=== PATIENT | female | born 1985 | race Caucasian/White ===

== ENCOUNTER 2017-06-29 21:52 | Emergency (ER) | payer MEDICAID, OTHER ==
[~2017-06-29] VITALS: Ht 157.5 cm; Wt 98.9 kg
[2017-06-29 21:55] VITALS: BP_SYST 145
--- NOTE | 2017-06-29 22:02 | NUR ---
Patient to ER bed 04 to gown for evaluation. Side rails up.
--- NOTE | 2017-06-29 22:09 | NUR ---
Pt c/o burning and frequent urination x2-3 days and pain to pelvic area which started today. Denies SOB, fever/chills. Respirations even and unlabored. No acute distress noted. Will continue to monitor
--- NOTE | 2017-06-29 22:14 | NUR ---
ER Dr. Gramajo at bedside examining patient.
--- NOTE | 2017-06-29 22:26 | NUR ---
Patient given written and verbal discharge instructions and verbalizes understanding. ER MD discussed with patient the results and treatment provided. Patient in stable condition. ID arm band removed. Rx of Pyridium and Macrobid given. Patient educated on pain management and to follow up with PMD. Opportunity for questions provided and answered.
[2017-06-29 22:27] VITALS: BP_SYST 142
[2017-06-29 22:32] LABS: BILIRUBIN,URINE NEGATIVE (NEGATIVE); CLARITY/URINE CLEAR (CLEAR); COLOR,URINE YELLOW (YELLOW); GLUCOSE,URINE NEGATIVE (NEGATIVE); KETONES,URINE NEGATIVE (NEGATIVE); LEUKOCYTE ESTERASE ,URINE NEGATIVE (NEGATIVE); NITRITE, URINE NEGATIVE (NEGATIVE); PROTEIN URINE NEGATIVE (NEGATIVE); UROBILINOGEN,URINE 0.2 (0.2-1.0)
[2017-06-29 22:33] LABS: BLOOD, URINE TRACE (NEGATIVE)
[2017-06-29 22:37] LABS: BACTERIA,URINE FEW /HPF (None Seen); RBC,URINE 0-3 /HPF (0-3); WBC,URINE 0-3 /HPF (0-3)
== END 2017-06-29 22:27 | disposition home or self-care (01) ==
LOC: SED 21:52
DX: N39.0 Urinary tract infection, site not specified (principal); I10 Essential (primary) hypertension; Z90.49 Acquired absence of other specified parts of digestive tract
CPT/HCPCS: 81000-TC; 99283

== ENCOUNTER 2017-07-01 11:52 | Emergency (ER) | payer MEDICAID ==
[~2017-07-01] VITALS: Ht 157.5 cm; Wt 98.9 kg
[2017-07-01 12:00] VITALS: BP_SYST 127
--- NOTE | 2017-07-01 12:04 | NUR ---
Ambulatory to bed 8
--- NOTE | 2017-07-01 12:20 | NUR ---
Pt ambulated to the ER A&Ox4 c/o vomiting x4 since last night. Pt states she has a headache and abdominal pain 7/10 now. Pt has hx of bladder infection two days ago. Pt reports having a fever and chills last night. Temperature is 98.7 now. Pt denies any n/v now. No other injuries/complaints per pt or noted.
--- NOTE | 2017-07-01 12:28 | NUR ---
ER Dr. Reyes at bedside examining patient.
[2017-07-01] MEDS ORDERED: NACL 0.9% 1,000 ML IV ONE (13:18)
--- NOTE | 2017-07-01 13:28 | NUR ---
Medication administered. Tolerated well. No adverse reactions noted.
[2017-07-01] MEDS ORDERED: ONDANSETRON HCL 4 MG/2 ML VIAL IVP ONE (13:30)
[2017-07-01 13:32] LABS: CALCIUM 8.8 mg/dL (8.4-11.0); CREATININE 0.7 mg/dL (0.55-1.30); POTASSIUM 3.6 mmol/L (3.5-5.1)
[2017-07-01 13:36] LABS: ALBUMIN 3.4 g/dL (3.4-4.8); TOTAL BILIRUBIN 0.3 mg/dL (0.0-1.0)
[2017-07-01 13:37] LABS: BILIRUBIN,URINE NEGATIVE (NEGATIVE); BLOOD, URINE 3+ (NEGATIVE); CLARITY/URINE SL CLOUDY (CLEAR); COLOR,URINE YELLOW (YELLOW); GLUCOSE,URINE NEGATIVE (NEGATIVE); KETONES,URINE NEGATIVE (NEGATIVE); LEUKOCYTE ESTERASE ,URINE NEGATIVE (NEGATIVE); NITRITE, URINE NEGATIVE (NEGATIVE); PROTEIN URINE NEGATIVE (NEGATIVE)
[2017-07-01 13:37] LABS: BASOPHILS % (AUTO) 0.3 % (0.0-2.0); EOSINOPHILS # (AUTO) 0.1 K/uL (0.0-0.4); EOSINOPHILS % (AUTO) 1.1 % (0.0-4.0); HEMATOCRIT 34.9 % (36-48); HEMOGLOBIN 11.7 g/dL (12.0-16.0); LYMPHOCYTES # (AUTO) 1.8 K/uL (1.0-5.5); LYMPHOCYTES % (AUTO) 23.9 % (20.5-51.5); MEAN CORPUSCULAR HEMOGLOBIN 29 pg (27-31); MEAN CORPUSCULAR HGB CONC 34 % (32-36); MEAN CORPUSCULAR VOLUME 87 fL (79.0-98.0); MONOCYTES # (AUTO) 0.4 K/uL (0.0-1.0); MONOCYTES % (AUTO) 4.7 % (1.7-9.3); NEUTROPHILS # (AUTO) 5.3 K/uL (1.8-7.7); PLATELET COUNT (AUTO) 200 K/uL (130-430); RED BLOOD CELL COUNT(AUTO) 4.03 MIL/uL (4.2-6.2); RED CELL DISTRIBUTION WIDTH 13.5 % (9.0-15.0); WHITE BLOOD COUNT (AUTO) 7.6 K/uL (4.8-10.8)
[2017-07-01 13:49] LABS: BACTERIA,URINE FEW /HPF (None Seen); WBC,URINE 0-3 /HPF (0-3)
[2017-07-01 13:50] LABS: MUCUS,URINE 1+ /LPF (None Seen)
--- NOTE | 2017-07-01 14:00 | NUR ---
Radiology at bedside.
[2017-07-01 15:32] VITALS: BP_SYST 133
--- NOTE | 2017-07-01 15:32 | NUR ---
Patient given written and verbal discharge instructions and verbalizes understanding. ER MD BREWER discussed with patient the results and treatment provided. Patient in stable condition. ID arm band removed. IV catheter removed intact and dressing applied, no active bleeding.Rx of ZOFRAN given. Patient educated on pain management and to follow up with PMD. Pain Scale 0. Opportunity for questions provided and answered. Addendum: 07/01/17 at 1533 by [email or web address] PT DISCHARGED AT 1512
== END 2017-07-01 15:32 | disposition home or self-care (01) ==
LOC: SED 11:52
DX: K52.9 Noninfective gastroenteritis and colitis, unspecified (principal); Z90.49 Acquired absence of other specified parts of digestive tract
CPT/HCPCS: 36415; 74000; 80053; 81000; 81025; 83690; 85025; 96361; 96374; 99285; J2405; J7030

== ENCOUNTER 2017-07-15 13:21 | Emergency (ER) | payer MEDICAID ==
[~2017-07-15] VITALS: Ht 160 cm; Wt 98.9 kg
[2017-07-15 13:31] VITALS: BP_SYST 136
[2017-07-15] MEDS ORDERED: ACETAMINOPHEN 500 MG TABLET PO ONE (14:30)
[2017-07-15] MEDS ORDERED: ONDANSETRON 4 MG ODT TAB PO ONE (14:45)
[2017-07-15 15:00] LABS: BASOPHILS % (AUTO) 0.2 % (0.0-2.0); EOSINOPHILS % (AUTO) 0.3 % (0.0-4.0); HEMATOCRIT 37.8 % (36-48); HEMOGLOBIN 12.6 g/dL (12.0-16.0); LYMPHOCYTES # (AUTO) 1.9 K/uL (1.0-5.5); LYMPHOCYTES % (AUTO) 17.1 % (20.5-51.5); MEAN CORPUSCULAR HEMOGLOBIN 29 pg (27-31); MEAN CORPUSCULAR HGB CONC 33 % (32-36); MEAN CORPUSCULAR VOLUME 86 fL (79.0-98.0); MONOCYTES # (AUTO) 0.3 K/uL (0.0-1.0); MONOCYTES % (AUTO) 2.8 % (1.7-9.3); NEUTROPHILS % (AUTO) 79.6 % (40.0-70.0); PLATELET COUNT (AUTO) 265 K/uL (130-430); RED BLOOD CELL COUNT(AUTO) 4.41 MIL/uL (4.2-6.2); RED CELL DISTRIBUTION WIDTH 13.4 % (9.0-15.0); WHITE BLOOD COUNT (AUTO) 11.2 K/uL (4.8-10.8)
[2017-07-15 15:14] LABS: CALCIUM 8.8 mg/dL (8.4-11.0); CREATININE 0.7 mg/dL (0.55-1.30); POTASSIUM 3.5 mmol/L (3.5-5.1)
[2017-07-15 15:28] LABS: ALBUMIN 3.6 g/dL (3.4-4.8); TOTAL BILIRUBIN 0.3 mg/dL (0.0-1.0)
[2017-07-15 16:30] VITALS: BP_SYST 110
== END 2017-07-15 16:34 | disposition home or self-care (01) ==
LOC: SED 13:21
DX: A08.4 Viral intestinal infection, unspecified (principal); K59.00 Constipation, unspecified; K21.9 Gastro-esophageal reflux disease without esophagitis; Z90.49 Acquired absence of other specified parts of digestive tract
CPT/HCPCS: 36415; 74020; 80053; 81025; 83690; 84702; 85025; 99285; Q0162

== ENCOUNTER 2017-09-01 17:34 | Emergency (ER) | payer MEDICAID ==
[~2017-09-01] VITALS: Ht 157.5 cm; Wt 97.5 kg
[2017-09-01 17:40] VITALS: BP_SYST 144
[2017-09-01] MEDS ORDERED: KETOROLAC TROMETHAMINE 30 MG VIAL IVP ONE (18:15)
[2017-09-01] MEDS ORDERED: PROCHLORPERAZINE EDISYLATE 10 MG/2 ML VIAL IVP ONE (18:15)
[2017-09-01] MEDS ORDERED: NACL 0.9% 1,000 ML IV ONE (18:15)
[2017-09-01 18:51] LABS: BASOPHILS # (AUTO) 0.1 K/uL (0.0-0.2); BASOPHILS % (AUTO) 0.5 % (0.0-2.0); EOSINOPHILS % (AUTO) 0.3 % (0.0-4.0); HEMATOCRIT 37.7 % (36-48); HEMOGLOBIN 12.5 g/dL (12.0-16.0); LYMPHOCYTES # (AUTO) 1.3 K/uL (1.0-5.5); LYMPHOCYTES % (AUTO) 10.6 % (20.5-51.5); MEAN CORPUSCULAR HEMOGLOBIN 28 pg (27-31); MEAN CORPUSCULAR HGB CONC 33 % (32-36); MEAN CORPUSCULAR VOLUME 84 fL (79.0-98.0); MONOCYTES # (AUTO) 0.4 K/uL (0.0-1.0); MONOCYTES % (AUTO) 3.3 % (1.7-9.3); NEUTROPHILS # (AUTO) 10.8 K/uL (1.8-7.7); NEUTROPHILS % (AUTO) 85.3 % (40.0-70.0); PLATELET COUNT (AUTO) 287 K/uL (130-430); RED BLOOD CELL COUNT(AUTO) 4.48 MIL/uL (4.2-6.2); RED CELL DISTRIBUTION WIDTH 13.1 % (9.0-15.0); WHITE BLOOD COUNT (AUTO) 12.6 K/uL (4.8-10.8)
[2017-09-01 18:59] LABS: BILIRUBIN,URINE NEGATIVE (NEGATIVE); BLOOD, URINE NEGATIVE (NEGATIVE); COLOR,URINE YELLOW (YELLOW); GLUCOSE,URINE NEGATIVE (NEGATIVE); KETONES,URINE NEGATIVE (NEGATIVE); LEUKOCYTE ESTERASE ,URINE NEGATIVE (NEGATIVE); NITRITE, URINE NEGATIVE (NEGATIVE); PH,URINE 7.5 (5.0-8.0); PROTEIN URINE NEGATIVE (NEGATIVE); UROBILINOGEN,URINE 0.2 (0.2-1.0)
[2017-09-01 19:00] LABS: CLARITY/URINE HAZY (CLEAR)
[2017-09-01 19:03] LABS: CALCIUM 9.6 mg/dL (8.4-11.0); CREATININE 0.68 mg/dL (0.55-1.30); POTASSIUM 4.1 mmol/L (3.5-5.1)
[2017-09-01 19:07] LABS: ALBUMIN 3.8 g/dL (3.4-4.8); TOTAL BILIRUBIN 0.3 mg/dL (0.0-1.0)
[2017-09-01 20:30] VITALS: BP_SYST 138
== END 2017-09-01 20:30 | disposition home or self-care (01) ==
LOC: SED 17:34
DX: D72.829 Elevated white blood cell count, unspecified (principal); R51 Headache; R10.32 Left lower quadrant pain; R03.0 Elevated blood-pressure reading, without diagnosis of hypertension; K21.9 Gastro-esophageal reflux disease without esophagitis; Z90.49 Acquired absence of other specified parts of digestive tract
CPT/HCPCS: 36415; 74176; 80053; 81003; 83690; 84703; 85025; 96361; 96374; 96375; 99285; J0780; J1885; J7030

== ENCOUNTER 2019-09-17 22:57 | Emergency (ER) | payer MEDICAID ==
[~2019-09-17] VITALS: Ht 157.5 cm; Wt 103.0 kg
[2019-09-17 23:00] VITALS: BP_SYST 174
--- NOTE | 2019-09-17 23:52 | NUR ---
Patient to ER bed 7 to gown for evaluation. Side rails up. Report given to RAMANDEEP TAVERAS.
--- NOTE | 2019-09-18 | NUR ---
ER at bedside examining patient.
--- NOTE | 2019-09-18 | NUR ---
Pt brought in by self. Pt awake, alert, oriented x4, ambulatory. Pt states nausea and vomiting started yesterday. Pt states she is unable to hold down fluids and food. Pt states accompanying abdominal pain. Pt denies chest pain, diarrhea, shortness of breath. Pt denies any other medical complaint at this time. Pt resting in ed bed, no acute distress. VSS
[2019-09-18] MEDS ORDERED: LIDOCAINE VISCOUS 2%, 15 ML UDC MM ONE (00:15)
[2019-09-18] MEDS ORDERED: BELLADONNA ALKALOIDS/PHENOBARB 5 ML UDC PO ONE (00:15)
[2019-09-18] MEDS ORDERED: MAG-AL HYDROX/SIMETH 30 ML UDC PO ONE (00:15)
--- NOTE | 2019-09-18 00:45 | NUR ---
Pt resting in ED bed, no acute distress noted.
[2019-09-18 01:30] VITALS: BP_SYST 166
--- NOTE | 2019-09-18 01:30 | NUR ---
Patient given written and verbal discharge instructions and verbalizes understanding. ER MD discussed with patient the results and treatment provided. Patient in stable condition. ID arm band removed.No IV Rx of Pepcid given. Patient educated on pain management and to follow up with PMD. Pain Scale 0/10. Opportunity for questions provided and answered. Medication side effect fact sheet provided.
== END 2019-09-18 01:30 | disposition home or self-care (01) ==
LOC: SED 22:57
DX: K29.70 Gastritis, unspecified, without bleeding (principal); K21.9 Gastro-esophageal reflux disease without esophagitis
CPT/HCPCS: 99284; J2001

== ENCOUNTER 2020-05-23 17:29 | Emergency (ER) | payer MEDICAID ==
[~2020-05-23] VITALS: Ht 157.5 cm; Wt 102.1 kg
[2020-05-23 17:47] VITALS: BP_SYST 141
[2020-05-23] MEDS ORDERED: MAG HYDROX/AL HYDROX/SIMETH 30 ML, DICYCLOMINE HCL 20 MG, LIDOCAINE VISCOUS 2% 15ML (PO... PO ONE ×3 (19:15)
[2020-05-23] MEDS ORDERED: HYDROcodone/ACETAMIN 5-325 MG TAB (NORCO/ VICODIN) PO ONE (19:15)
[2020-05-23] MEDS ORDERED: PROCHLORPERAZINE EDISYLATE 10 MG/2 ML VIAL IM ONE (20:15)
[2020-05-23] MEDS ORDERED: KETOROLAC TROMETHAMINE 30 MG VIAL IM ONE (20:15)
[2020-05-23] MEDS ORDERED: DIPHENHYDRAMINE INJ 50 MG/ML VIAL IM ONE (20:15)
[2020-05-23] MEDS ORDERED: methylPREDNISolone SOD SUCC/PF 62.5 MG/ML VIAL IM ONE (21:15)
[2020-05-23] MEDS ORDERED: cloNIDine HCL 0.1 MG TABLET PO ONE (21:30)
[2020-05-23 22:12] VITALS: BP_SYST 135
== END 2020-05-23 22:12 | disposition home or self-care (01) ==
LOC: SED 17:29
DX: K29.70 Gastritis, unspecified, without bleeding (principal); R51.9 Headache, unspecified
CPT/HCPCS: 70450; 81025; 96372; 99284; J0780; J1200; J2001; J2930

== ENCOUNTER 2021-06-10 20:04 | Emergency (ER) | payer MEDICAID ==
[~2021-06-10] VITALS: Ht 154.9 cm; Wt 99.8 kg
[2021-06-10 20:35] VITALS: BP_SYST 160
[2021-06-10 21:43] LABS: BILIRUBIN,URINE NEGATIVE (NEGATIVE); BLOOD, URINE 3+ (NEGATIVE); CLARITY/URINE CLOUDY (CLEAR); COLOR,URINE YELLOW (YELLOW); GLUCOSE,URINE NEGATIVE (NEGATIVE); KETONES,URINE TRACE (NEGATIVE); LEUKOCYTE ESTERASE ,URINE NEGATIVE (NEGATIVE); NITRITE, URINE NEGATIVE (NEGATIVE); PROTEIN URINE NEGATIVE (NEGATIVE); UROBILINOGEN,URINE 0.2 (0.2-1.0)
[2021-06-10] MEDS ORDERED: MAG HYDROX/AL HYDROX/SIMETH 30 ML, DICYCLOMINE HCL 20 MG, LIDOCAINE VISCOUS 2% 15ML (PO... PO ONE ×3 (22:45)
--- NOTE | 2021-06-10 22:51 | NUR ---
Patient ambulatory to bed 4 for evaluation
--- NOTE | 2021-06-10 22:51 | NUR ---
DR. PALACIO AT BEDSIDE FOR EVALUATION.
--- NOTE | 2021-06-10 23:15 | NUR ---
PATIENT AAOX4 AND AMBULATORY FROM HOME C/O ON/OFF VOMITING X 1 WEEK WITH A BURNING SENSATION IN HER THROAT. +HEADACHE AND URINARY FREQUENCY AND URGENCY X 2 WEEKS. HISTORY OF GASTRITIS AND GALLSTONES. VSS. CURRENTLY STATING 4/10 ON THE PAIN SCALE. PT STATED SHE USUALLY COMES AND GETS A GI COCKTAIL AND IT WORKS FOR THE PAIN.
[2021-06-10 23:22] LABS: BACTERIA,URINE FEW /HPF (None Seen); MUCUS,URINE None Seen /LPF (None Seen); RBC,URINE 50-80 /HPF (0-3); URINE AMORPHOUS PHOSPHATES 3+ /HPF (None Seen); WBC,URINE 0-3 /HPF (0-3)
[2021-06-11 00:26] LABS: BASOPHILS % (AUTO) 0.6 % (0.0-2.0); EOSINOPHILS # (AUTO) 0.2 K/uL (0.0-0.4); EOSINOPHILS % (AUTO) 2.3 % (0.0-4.0); HEMATOCRIT 37.2 % (36-48); HEMOGLOBIN 12.4 g/dL (12.0-16.0); LYMPHOCYTES # (AUTO) 2.4 K/uL (1.0-5.5); LYMPHOCYTES % (AUTO) 30.8 % (20.5-51.5); MEAN CORPUSCULAR HEMOGLOBIN 29 pg (27-31); MEAN CORPUSCULAR HGB CONC 33 % (32-36); MEAN CORPUSCULAR VOLUME 87 fL (79.0-98.0); MONOCYTES # (AUTO) 0.6 K/uL (0.0-1.0); MONOCYTES % (AUTO) 7.3 % (1.7-9.3); NEUTROPHILS # (AUTO) 4.5 K/uL (1.8-7.7); PLATELET COUNT (AUTO) 242 K/uL (130-430); RED CELL DISTRIBUTION WIDTH 14.4 % (9.0-15.0); WHITE BLOOD COUNT (AUTO) 7.7 K/uL (4.8-10.8)
[2021-06-11 00:55] LABS: ALBUMIN 3.3 g/dL (3.4-4.8); CALCIUM 8.5 mg/dL (8.4-11.0); CREATININE 0.84 mg/dL (0.55-1.30); POTASSIUM 3.3 mmol/L (3.5-5.1); TOTAL BILIRUBIN 0.1 mg/dL (0.0-1.0)
[2021-06-11] MEDS ORDERED: OMEP20CA15 PO (01:22)
[2021-06-11] MEDS ORDERED: SUCR1TAB78 PO (01:22)
[2021-06-11 01:39] VITALS: BP_SYST 160
--- NOTE | 2021-06-11 01:44 | NUR ---
Patient given written and verbal discharge instructions and verbalizes understanding. ER MD PALACIO discussed with patient the results and treatment provided. Patient in stable condition. ID arm band removed. Rx of OMEPRAZOLE given. Patient educated on pain management and to follow up with PMD. Pain Scale 0/10. Opportunity for questions provided and answered. Medication side effect fact sheet provided.
== END 2021-06-11 01:44 | disposition home or self-care (01) ==
LOC: SED 20:04
DX: R10.13 Epigastric pain (principal); R11.2 Nausea with vomiting, unspecified; K21.9 Gastro-esophageal reflux disease without esophagitis; Z79.899 Other long term (current) drug therapy
CPT/HCPCS: 36415; 80053; 81000; 81025; 83690; 84702; 85025; 99283; J2001

== ENCOUNTER 2021-09-09 16:11 | Emergency (ER) | payer MEDICAID, SELFPAY ==
[~2021-09-09] VITALS: Ht 154.9 cm; Wt 103.9 kg
[~2021-09-09 16:11] MED LIST: OMEP20CA15 PO; SUCR1TAB78 PO
[2021-09-09 16:16] VITALS: BP_SYST 145
--- NOTE | 2021-09-09 16:20 | NUR ---
Patient triaged and placed in waiting room. VSS and patient appears in no acute distress at this time. Accompanied by self , awaiting available bed, and MD notified of need for MSE.
--- NOTE | 2021-09-09 16:22 | NUR ---
Pt brought by self, A&Ox4, pt presents to ER with palpitations, tachicardia, HR 111, anxious, skin pink and warm, cap refill <3, VSS, respirations even and unlabored.
--- NOTE | 2021-09-09 19:13 | NUR ---
Dr Holden evaluating patient in the triage room
[2021-09-09 19:22] LABS: BASOPHILS # (AUTO) 0.1 K/uL (0.0-0.2); BASOPHILS % (AUTO) 0.6 % (0.0-2.0); EOSINOPHILS # (AUTO) 0.1 K/uL (0.0-0.4); EOSINOPHILS % (AUTO) 1.4 % (0.0-4.0); HEMATOCRIT 40.9 % (36-48); HEMOGLOBIN 13.5 g/dL (12.0-16.0); LYMPHOCYTES % (AUTO) 24.9 % (20.5-51.5); MEAN CORPUSCULAR HEMOGLOBIN 27 pg (27-31); MEAN CORPUSCULAR HGB CONC 33 % (32-36); MEAN CORPUSCULAR VOLUME 83 fL (79.0-98.0); MONOCYTES # (AUTO) 0.4 K/uL (0.0-1.0); MONOCYTES % (AUTO) 4.9 % (1.7-9.3); NEUTROPHILS # (AUTO) 5.6 K/uL (1.8-7.7); NEUTROPHILS % (AUTO) 68.2 % (40.0-70.0); PLATELET COUNT (AUTO) 244 K/uL (130-430); RED BLOOD CELL COUNT(AUTO) 4.92 MIL/uL (4.2-6.2); RED CELL DISTRIBUTION WIDTH 14.4 % (9.0-15.0); WHITE BLOOD COUNT (AUTO) 8.2 K/uL (4.8-10.8)
[2021-09-09 19:45] LABS: CALCIUM 8.5 mg/dL (8.4-11.0); CREATININE 0.64 mg/dL (0.55-1.30); POTASSIUM 3.5 mmol/L (3.5-5.1)
[2021-09-09 20:00] LABS: ALBUMIN 3.8 g/dL (3.4-4.8); THYROID STIMULATING HORMONE 1.47 uIu/mL (0.36-3.74); TOTAL BILIRUBIN 0.3 mg/dL (0.0-1.0)
[2021-09-09] MEDS ORDERED: KETOROLAC TROMETHAMINE 30 MG VIAL IM ONE (22:15)
--- NOTE | 2021-09-09 22:53 | NUR ---
Patient given written and verbal discharge instructions and verbalizes understanding. ER MD discussed with patient the results and treatment provided. Patient in stable condition. ID arm band removed. Rx of given. Patient educated on pain management and to follow up with PMD. Pain Scale . Opportunity for questions provided and answered. Medication side effect fact sheet provided.
[2021-09-09 23:25] VITALS: BP_SYST 145
== END 2021-09-09 23:25 | disposition home or self-care (01) ==
LOC: SED 16:11
DX: R00.2 Palpitations (principal); R51.9 Headache, unspecified; K21.9 Gastro-esophageal reflux disease without esophagitis; Z79.899 Other long term (current) drug therapy
CPT/HCPCS: 36415; 71045; 80053; 81025; 83735; 84443; 84484; 85025; 93005; 96372; 99285; J1885

== ENCOUNTER 2021-11-19 23:04 | Emergency (ER) | payer MEDICAID ==
[~2021-11-19] VITALS: Ht 165.1 cm; Wt 104.3 kg
--- NOTE | 2021-11-19 23:16 | NUR ---
PT COMES TO ER WITH C/O MIGUEL ANGELUDLA ONSET OF HEADACHE-ACHE, NON RADIATING X5 DAYS, INTERMITTENT. DENIES ANY VISUAL CHANGES, BUT DOES REPORT NAUSEA,NO VOMITTING. RESP EVEN AND UNALBORED, NEURO CHECKS INTACT. NO SLURRED SPEECH , NO FACIAL DROOP. PT DOES REPORT HISTORY OF MIGRAINES, TAKES EXEDRIN WITHMILD RELIEF. SAFETY PRECAUTIONS I PLACE, WILL CONT TO MONITOR.
[2021-11-19 23:21] VITALS: BP_SYST 157
--- NOTE | 2021-11-19 23:34 | NUR ---
DR JOYCE IN ROOM FOR EXAM.
[2021-11-20] MEDS ORDERED: ONDANSETRON HCL 4 MG/2 ML VIAL IVP ONE (00:15)
[2021-11-20] MEDS ORDERED: KETOROLAC TROMETHAMINE 30 MG VIAL IVP ONE (00:15)
[2021-11-20] MEDS ORDERED: NACL 0.9% 1,000 ML IV ONE (00:15)
[2021-11-20] MEDS ORDERED: MAG HYDROX/AL HYDROX/SIMETH 30 ML, DICYCLOMINE HCL 20 MG, LIDOCAINE VISCOUS 2% 15ML (PO... PO ONE ×3 (00:15)
[2021-11-20] MEDS ORDERED: MORPHINE 4 MG INJ. 4 MG/ML VIAL IVP ONE ×2 (00:15→02:15)
[2021-11-20 01:34] LABS: CREATININE 0.89 mg/dL (0.55-1.30); POTASSIUM 3.6 mmol/L (3.5-5.1)
[2021-11-20 01:40] LABS: BASOPHILS % (AUTO) 0.2 % (0.0-2.0); EOSINOPHILS # (AUTO) 0.1 K/uL (0.0-0.4); EOSINOPHILS % (AUTO) 1.3 % (0.0-4.0); HEMOGLOBIN 13.3 g/dL (12.0-16.0); LYMPHOCYTES # (AUTO) 1.8 K/uL (1.0-5.5); LYMPHOCYTES % (AUTO) 22.4 % (20.5-51.5); MEAN CORPUSCULAR HEMOGLOBIN 28 pg (27-31); MEAN CORPUSCULAR HGB CONC 33 % (32-36); MEAN CORPUSCULAR VOLUME 84 fL (79.0-98.0); MONOCYTES # (AUTO) 0.5 K/uL (0.0-1.0); MONOCYTES % (AUTO) 5.9 % (1.7-9.3); NEUTROPHILS # (AUTO) 5.8 K/uL (1.8-7.7); NEUTROPHILS % (AUTO) 70.2 % (40.0-70.0); PLATELET COUNT (AUTO) 224 K/uL (130-430); RED BLOOD CELL COUNT(AUTO) 4.79 MIL/uL (4.2-6.2); RED CELL DISTRIBUTION WIDTH 14.6 % (9.0-15.0); WHITE BLOOD COUNT (AUTO) 8.3 K/uL (4.8-10.8)
[2021-11-20 01:46] LABS: ALBUMIN 3.6 g/dL (3.4-4.8); TOTAL BILIRUBIN 0.1 mg/dL (0.0-1.0)
[2021-11-20 01:52] LABS: BILIRUBIN,URINE NEGATIVE (NEGATIVE); BLOOD, URINE 1+ (NEGATIVE); CLARITY/URINE CLEAR (CLEAR); COLOR,URINE YELLOW (YELLOW); GLUCOSE,URINE NEGATIVE (NEGATIVE); KETONES,URINE NEGATIVE (NEGATIVE); LEUKOCYTE ESTERASE ,URINE TRACE (NEGATIVE); NITRITE, URINE NEGATIVE (NEGATIVE); PROTEIN URINE NEGATIVE (NEGATIVE); UROBILINOGEN,URINE 0.2 (0.2-1.0)
--- NOTE | 2021-11-20 02:17 | NUR ---
PT REPORTS NECK PAIN 5/10 AT THI TIME. PT IN NAD. RESP EVEN AND UNLABORED, ON RA @99%. BP STABLE @ 126/64
[2021-11-20] MEDS ORDERED: MORPHINE 4 MG INJ. 4 MG/ML VIAL ONE (02:27)
[2021-11-20 02:58] LABS: BACTERIA,URINE FEW /HPF (None Seen); WBC,URINE 50-80 /HPF (0-3)
[2021-11-20 03:00] LABS: MUCUS,URINE 2+ /LPF (None Seen)
[2021-11-20] MEDS ORDERED: OMEP40CA20 PO (04:33)
[2021-11-20] MEDS ORDERED: PRED20TA PO (04:33)
--- NOTE | 2021-11-20 04:58 | NUR ---
PT WITH EYES CLOSED, IN NAD; EASILY AWAKENED. PT NORMALTENSIVE AT 124/71, HR-80. PT DENIES ANY PAIN AT THIS TIME. WAITING FOR DISPO.
[2021-11-20] MEDS ORDERED: CYCL10TA24 PO (05:21)
[2021-11-20] MEDS ORDERED: HYDR-3917 PO (05:23)
--- NOTE | 2021-11-20 05:56 | NUR ---
Patient given written and verbal discharge instructions and verbalizes understanding. ER MD discussed with patient the results and treatment provided. Patient in stable condition. ID arm band removed. IV catheter removed intact and dressing applied, no active bleeding. Rx of FLEXERIL,NORCO,OMEPRAZOLE, PREDNISONE given. Patient educated on pain management and to follow up with PMD. Pain Scale . Opportunity for questions provided and answered. Medication side effect fact sheet provided.
[2021-11-20 05:57] VITALS: BP_SYST 128
== END 2021-11-20 05:56 | disposition home or self-care (01) ==
LOC: SED 23:04
DX: I10 Essential (primary) hypertension (principal); M54.2 Cervicalgia; K29.50 Unspecified chronic gastritis without bleeding; E01.0 Iodine-deficiency related diffuse (endemic) goiter; E66.01 Morbid (severe) obesity due to excess calories; K21.9 Gastro-esophageal reflux disease without esophagitis
CPT/HCPCS: 36415; 72125; 76376; 80053; 81000; 81025; 83690; 84702; 85025; 96361; 96374; 96375; 96376; 99284; J1885; J2001; J2270; J2405; J7030

== ENCOUNTER 2022-01-07 16:57 | Emergency (ER) | payer MEDICAID ==
[~2022-01-07] VITALS: Ht 154.9 cm; Wt 104.3 kg
[~2022-01-07 16:57] MED LIST changes: +CYCL10TA24 PO; +HYDR-3917 PO; -OMEP20CA15 PO; +OMEP40CA20 PO; +PRED20TA PO
[2022-01-07 17:45] VITALS: BP_SYST 152
--- NOTE | 2022-01-07 18:01 | NUR ---
Patient triaged and placed in waiting room. VSS and patient appears in no acute distress at this time. Accompanied by SELF, awaiting available bed, and MD notified of need for MSE.
--- NOTE | 2022-01-07 18:56 | NUR ---
Pt to bed 3 for evaluation.
--- NOTE | 2022-01-07 19:10 | NUR ---
Report given to NITIN Moe who will assume care.
[2022-01-07] MEDS ORDERED: FAMOTIDINE 20 MG TABLET PO ONE (19:45)
[2022-01-07] MEDS ORDERED: MAG-AL HYDROX/SIMETH 30 ML UDC PO ONE (19:45)
[2022-01-07] MEDS ORDERED: LIDOCAINE VISCOUS 2%, 15 ML UDC MM ONE (19:45)
[2022-01-07] MEDS ORDERED: KETOROLAC TROMETHAMINE 30 MG VIAL IM ONE (19:45)
[2022-01-07] MEDS ORDERED: FAMO40TA7 PO (20:42)
[2022-01-07] MEDS ORDERED: ANT30 PO (20:42)
--- NOTE | 2022-01-07 20:42 | NUR ---
URINE COLLECTED, NEG FOR PREG.
[2022-01-07] MEDS ORDERED: LIDOCAINE PATCH 5% 1 EA TP ONE ×2 (20:45→20:47)
[2022-01-07] MEDS ORDERED: LIDO1ADH22 TP (20:57)
--- NOTE | 2022-01-07 21:21 | NUR ---
Patient given written and verbal discharge instructions and verbalizes understanding. ER MD discussed with patient the results and treatment provided. Patient in stable condition. ID arm band removed. IV catheter removed intact and dressing applied, no active bleeding. Rx of MYLANTA, FAMOTIDINE, LIDOCAINE given. Patient educated on pain management and to follow up with PMD. Pain Scale . Opportunity for questions provided and answered. Medication side effect fact sheet provided.
[2022-01-07 21:23] VITALS: BP_SYST 147
== END 2022-01-07 21:23 | disposition home or self-care (01) ==
LOC: SED 16:57
DX: S16.1XXA Strain of muscle, fascia and tendon at neck level, initial encounter (principal); K29.70 Gastritis, unspecified, without bleeding; I10 Essential (primary) hypertension; K21.9 Gastro-esophageal reflux disease without esophagitis; F12.90 Cannabis use, unspecified, uncomplicated; X58.XXXA Exposure to other specified factors, initial encounter; Y93.89 Activity, other specified; Y92.89 Other specified places as the place of occurrence of the external cause; Y99.8 Other external cause status
CPT/HCPCS: 81025; 96372; 99284; J1885; J2001; 99283

== ENCOUNTER 2022-01-10 23:21 | Emergency (ER) | payer MEDICAID ==
[~2022-01-10 23:21] MED LIST changes: +ANT30 PO; +FAMO40TA7 PO; +LIDO1ADH22 TP
--- NOTE | 2022-01-11 00:05 | NUR ---
Lab at bedside.
[2022-01-11 00:06] LABS: BASOPHILS # (AUTO) 0.1 K/uL (0.0-0.2); BASOPHILS % (AUTO) 1.6 % (0.0-2.0); EOSINOPHILS # (AUTO) 0.1 K/uL (0.0-0.4); EOSINOPHILS % (AUTO) 1.5 % (0.0-4.0); HEMATOCRIT 36.3 % (36-48); HEMOGLOBIN 12.3 g/dL (12.0-16.0); LYMPHOCYTES # (AUTO) 1.9 K/uL (1.0-5.5); LYMPHOCYTES % (AUTO) 25.5 % (20.5-51.5); MEAN CORPUSCULAR HEMOGLOBIN 28 pg (27-31); MEAN CORPUSCULAR HGB CONC 34 % (32-36); MEAN CORPUSCULAR VOLUME 84 fL (79.0-98.0); MONOCYTES # (AUTO) 0.5 K/uL (0.0-1.0); MONOCYTES % (AUTO) 6.5 % (1.7-9.3); NEUTROPHILS # (AUTO) 4.8 K/uL (1.8-7.7); NEUTROPHILS % (AUTO) 64.9 % (40.0-70.0); PLATELET COUNT (AUTO) 205 K/uL (130-430); RED BLOOD CELL COUNT(AUTO) 4.35 MIL/uL (4.2-6.2); RED CELL DISTRIBUTION WIDTH 14.2 % (9.0-15.0); WHITE BLOOD COUNT (AUTO) 7.4 K/uL (4.8-10.8)
[2022-01-11 00:16] LABS: CALCIUM 8.3 mg/dL (8.4-11.0); CREATININE 0.89 mg/dL (0.55-1.30); POTASSIUM 3.6 mmol/L (3.5-5.1)
--- NOTE | 2022-01-11 00:26 | NUR ---
Pelvic exam ready for MD.
[2022-01-11 00:27] LABS: ALBUMIN 3.3 g/dL (3.4-4.8); TOTAL BILIRUBIN 0.2 mg/dL (0.0-1.0)
[2022-01-11] MEDS ORDERED: KETOROLAC TROMETHAMINE 60 MG/2 ML VIAL IM ONE (01:00)
[2022-01-11] MEDS ORDERED: MORPHINE 4 MG INJ. 4 MG/ML VIAL IM ONE (01:00)
--- NOTE | 2022-01-11 01:09 | NUR ---
Patient taken to ultrasound with senior electronics technician.
[2022-01-11] MEDS ORDERED: AUG875 PO (02:19)
[2022-01-11] MEDS ORDERED: IBUP-1971 PO (02:19)
[2022-01-11 02:37] VITALS: BP_SYST 120
--- NOTE | 2022-01-11 02:38 | NUR ---
Patient given written and verbal discharge instructions and verbalizes understanding. ER MD discussed with patient the results and treatment provided. Patient in stable condition. ID arm band removed. IV catheter removed intact and dressing applied, no active bleeding. Rx of augmentin/ibuprofen given. Patient educated on pain management and to follow up with PMD. Pain Scale . Opportunity for questions provided and answered. Medication side effect fact sheet provided.
== END 2022-01-11 02:38 | disposition home or self-care (01) ==
LOC: SED 23:21
DX: R10.32 Left lower quadrant pain (principal); I10 Essential (primary) hypertension; K21.9 Gastro-esophageal reflux disease without esophagitis
CPT/HCPCS: 36415; 76830; 76857; 80053; 83690; 84702; 85025; 96372; 99284; J1885; J2270

== ENCOUNTER 2022-03-19 16:07 | Emergency (ER) | payer MEDICAID ==
[~2022-03-19] VITALS: Ht 154.9 cm; Wt 106.6 kg
[~2022-03-19 16:07] MED LIST changes: +AUG875 PO; +IBUP-1971 PO
[2022-03-19 16:21] VITALS: BP_SYST 158
--- NOTE | 2022-03-19 16:25 | NUR ---
37YO F, WITH HX OF MIGRAINE, C/O POSTERIOR NECK PAIN RADIATING TO FRONTAL AREA SINCE THIS AM. DENIES TRAUMA OR INJURY TO AREA. DENIES VOMITING, BLURRING OF VISION. 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 ERMD MADE AWARE OF PT STATUS.
[2022-03-19 17:22] LABS: BASOPHILS % (AUTO) 0.6 % (0.0-2.0); EOSINOPHILS # (AUTO) 0.1 K/uL (0.0-0.4); EOSINOPHILS % (AUTO) 1.2 % (0.0-4.0); HEMATOCRIT 39.2 % (36-48); HEMOGLOBIN 12.9 g/dL (12.0-16.0); LYMPHOCYTES # (AUTO) 1.7 K/uL (1.0-5.5); LYMPHOCYTES % (AUTO) 21.9 % (20.5-51.5); MEAN CORPUSCULAR HEMOGLOBIN 28 pg (27-31); MEAN CORPUSCULAR HGB CONC 33 % (32-36); MEAN CORPUSCULAR VOLUME 84 fL (79.0-98.0); MONOCYTES # (AUTO) 0.5 K/uL (0.0-1.0); NEUTROPHILS # (AUTO) 5.6 K/uL (1.8-7.7); NEUTROPHILS % (AUTO) 70.3 % (40.0-70.0); PLATELET COUNT (AUTO) 225 K/uL (130-430); RED BLOOD CELL COUNT(AUTO) 4.67 MIL/uL (4.2-6.2); RED CELL DISTRIBUTION WIDTH 14.6 % (9.0-15.0)
[2022-03-19] MEDS: DEXAMETHASONE SOD PHOSPHATE 10 MG/ML VIAL IVP ONE (17:26)
[2022-03-19] MEDS: DIPHENHYDRAMINE INJ 50 MG/ML VIAL IVP ONE (17:26)
[2022-03-19] MEDS: KETOROLAC TROMETHAMINE 30 MG VIAL IVP ONE (17:26)
[2022-03-19] MEDS: MAG HYDROX/AL HYDROX/SIMETH 30 ML, DICYCLOMINE HCL 20 MG, LIDOCAINE VISCOUS 2% 15ML (PO... PO ONE ×3 (17:27)
[2022-03-19] MEDS: METOCLOPRAMIDE HCL 10 MG/2 ML VIAL IVP ONE (17:32)
[2022-03-19 18:05] LABS: CALCIUM 8.5 mg/dL (8.4-11.0); CREATININE 0.73 mg/dL (0.55-1.30); POTASSIUM 3.6 mmol/L (3.5-5.1)
[2022-03-19 18:13] LABS: ALBUMIN 3.3 g/dL (3.4-4.8); TOTAL BILIRUBIN 0.2 mg/dL (0.0-1.0)
[2022-03-19] MEDS ORDERED: FIORICET PO (18:21)
[2022-03-19 19:15] VITALS: BP_SYST 158
--- NOTE | 2022-03-19 19:15 | NUR ---
Patient given written and verbal discharge instructions and verbalizes understanding. ER MD discussed with patient the results and treatment provided. Patient in stable condition. ID arm band removed. IV catheter removed intact and dressing applied, no active bleeding. Rx of FIORICET given. Patient educated on pain management and to follow up with PMD. Pain Scale 0. Opportunity for questions provided and answered. Medication side effect fact sheet provided.
== END 2022-03-19 19:15 | disposition home or self-care (01) ==
LOC: SED 16:07
DX: G43.009 Migraine without aura, not intractable, without status migrainosus (principal); K21.9 Gastro-esophageal reflux disease without esophagitis; M54.2 Cervicalgia; E11.9 Type 2 diabetes mellitus without complications; I10 Essential (primary) hypertension; R11.2 Nausea with vomiting, unspecified; Z79.899 Other long term (current) drug therapy
CPT/HCPCS: 99284; 96374; 96375; 80053; 85025; 36415; 81025; J2001; J1100; J1200; J1885; J2765

== ENCOUNTER 2022-05-25 18:51 | Emergency (ER) | payer MEDICAID ==
[~2022-05-25] VITALS: Ht 154.9 cm; Wt 106.6 kg
[~2022-05-25 18:51] MED LIST changes: +FIORICET PO; +SUCR1TAB2 PO; -SUCR1TAB78 PO
[2022-05-25 19:20] VITALS: BP_SYST 159
--- NOTE | 2022-05-25 19:25 | NUR ---
STATES SHE HAD THYROID BIOPSY ON 05/15 AND HAS HAD HEADACHE SINCE 05/18 THAT RADIATES TO NECK WITHOUT RELIEF OF ANY MEDICATION.
--- NOTE | 2022-05-25 21:50 | NUR ---
PT IS AA&OX4. AFEBRILE. NAD, C/O 9/10 HEADACHE AND PRESSURE ON HER NOSE AND HER SINUS AREA SOUND HER FACE AND NECK .. PER PT, SHE HAD A THRYOID BIOPSY ON May AND STARTED FEELING THE HEADACHE AND PRESSURE TWO DAYS AFTER THE BIOPSY, SHE SAID SHE'S TRIED EVERYTHING LIKE TYLENOL, IBUPROFEN AND EVEN TRAMADOL THAT WAS PRESCRIBED TO HER IN THE PAST BUT NONE OF THEM WERE EFFECTIVE. SHE SAID SHE HASN'T TALKED TO HER ENT DOCTOR OR PMD FOR THE HEADACHE AND PRESSURE SYMPTOMS. PT AMBULATED TO THE BED W/ STEADY GAIT. SAFE & HAZARD FREE ENVIRONMENT PROVIDED.
--- NOTE | 2022-05-25 23:00 | NUR ---
ER at bedside examining patient.
[2022-05-25] MEDS ORDERED: METOCLOPRAMIDE HCL 10 MG/2 ML VIAL IVP ONE (23:15)
[2022-05-25] MEDS ORDERED: DIPHENHYDRAMINE INJ 50 MG/ML VIAL IVP ONE (23:15)
[2022-05-25] MEDS ORDERED: MORPHINE 2 MG/ML INJ. SYRINGE IVP ONE (23:15)
[2022-05-25] MEDS ORDERED: NACL 0.9% 1,000 ML IV ONE (23:15)
[2022-05-25] MEDS ORDERED: KETOROLAC TROMETHAMINE 30 MG VIAL IVP ONE (23:15)
[2022-05-25 23:42] LABS: BILIRUBIN,URINE NEGATIVE (NEGATIVE); BLOOD, URINE 1+ (NEGATIVE); COLOR,URINE YELLOW (YELLOW); GLUCOSE,URINE NEGATIVE (NEGATIVE); KETONES,URINE NEGATIVE (NEGATIVE); LEUKOCYTE ESTERASE ,URINE NEGATIVE (NEGATIVE); NITRITE, URINE NEGATIVE (NEGATIVE); PROTEIN URINE NEGATIVE (NEGATIVE)
[2022-05-25 23:43] LABS: CLARITY/URINE HAZY (CLEAR)
--- NOTE | 2022-05-25 23:50 | NUR ---
# 20 gauge angiocath placed to LAC. Use of asceptic technique. Opsite placed over site. Blood return noted. Blood for lab drawn from site. Flushed with 10 cc of normal saline. No evidence of infiltration noted. Patient tolerated well.
[2022-05-25 23:57] LABS: BACTERIA,URINE FEW /HPF (None Seen); RBC,URINE 0-3 /HPF (0-3); WBC,URINE 0-3 /HPF (0-3)
[2022-05-25 23:58] LABS: MUCUS,URINE 1+ /LPF (None Seen)
[2022-05-26 00:04] LABS: BASOPHILS % (AUTO) 0.6 % (0.0-2.0); EOSINOPHILS # (AUTO) 0.2 K/uL (0.0-0.4); EOSINOPHILS % (AUTO) 2.1 % (0.0-4.0); HEMATOCRIT 37.6 % (36-48); HEMOGLOBIN 12.7 g/dL (12.0-16.0); LYMPHOCYTES # (AUTO) 2.1 K/uL (1.0-5.5); LYMPHOCYTES % (AUTO) 27.6 % (20.5-51.5); MEAN CORPUSCULAR HEMOGLOBIN 28 pg (27-31); MEAN CORPUSCULAR HGB CONC 34 % (32-36); MEAN CORPUSCULAR VOLUME 84 fL (79.0-98.0); MONOCYTES # (AUTO) 0.5 K/uL (0.0-1.0); MONOCYTES % (AUTO) 6.4 % (1.7-9.3); NEUTROPHILS # (AUTO) 4.8 K/uL (1.8-7.7); NEUTROPHILS % (AUTO) 63.3 % (40.0-70.0); PLATELET COUNT (AUTO) 220 K/uL (130-430); RED BLOOD CELL COUNT(AUTO) 4.47 MIL/uL (4.2-6.2); RED CELL DISTRIBUTION WIDTH 14.5 % (9.0-15.0); WHITE BLOOD COUNT (AUTO) 7.6 K/uL (4.8-10.8)
[2022-05-26 00:24] LABS: CALCIUM 8.9 mg/dL (8.4-11.0); CREATININE 0.75 mg/dL (0.55-1.30); POTASSIUM 3.2 mmol/L (3.5-5.1)
[2022-05-26 00:29] LABS: ALBUMIN 3.5 g/dL (3.4-4.8); TOTAL BILIRUBIN 0.2 mg/dL (0.0-1.0)
[2022-05-26] MEDS ORDERED: POTASSIUM CHLORIDE 20 MEQ TAB.PRT.SR ONE (01:38)
[2022-05-26] MEDS ORDERED: DEXAMETHASONE SOD PHOSPHATE 10 MG/ML VIAL ONE (01:39)
[2022-05-26] MEDS ORDERED: DEXAMETHASONE SOD PHOSPHATE 10 MG/ML VIAL IVP ONE (01:45)
[2022-05-26] MEDS ORDERED: POTASSIUM CHLORIDE 20 MEQ TAB.PRT.SR PO ONE (01:45)
[2022-05-26 02:31] VITALS: BP_SYST 113
--- NOTE | 2022-05-26 02:50 | NUR ---
Patient given written and verbal discharge instructions and verbalizes understanding. ER MD discussed with patient the results and treatment provided. Patient in stable condition. ID arm band removed. IV catheter removed intact and dressing applied, no active bleeding. Rx of N/A given. Patient educated on pain management and to follow up with PMD. Pain Scale . Opportunity for questions provided and answered. Medication side effect fact sheet provided.
== END 2022-05-26 02:50 | disposition home or self-care (01) ==
LOC: SED 18:51
DX: R51.9 Headache, unspecified (principal); M54.2 Cervicalgia; K21.9 Gastro-esophageal reflux disease without esophagitis; I10 Essential (primary) hypertension; Z79.899 Other long term (current) drug therapy
CPT/HCPCS: 99284; 96374; 96375 ×2; 96361; 80053; 81000; 85025; 36415; 81025; J1200; J1885; J2765; J2270; J7030; J1100

== ENCOUNTER 2022-06-04 22:23 | Emergency (ER) | payer MEDICAID ==
[~2022-06-04] VITALS: Ht 154.9 cm; Wt 104.3 kg
[~2022-06-04 22:23] MED LIST changes: +ACETAMINOPHEN 500 MG TABLET PO ONE; +METOCLOPRAMIDE HCL 10 MG/2 ML VIAL IVP ONE; +NACL 0.9% 1,000 ML IV ONE
[2022-06-04 22:28] VITALS: BP_SYST 174
--- NOTE | 2022-06-04 22:32 | NUR ---
PT HERE ACCOMPANIED BY FAMILY MEMBER C/O MIGRAINE MARYEADACHE SINCE THIS MORNING WITH VOMITING. NO LN NOTED. PMh;MIGRAINE, GASTRITIS. PT AAOX4, NO SOB NOTED AND AND. PENDING MD BOYER
--- NOTE | 2022-06-04 22:40 | NUR ---
Patient to ER bed 03 to gown for evaluation. Side rails up. Report given to NITIN KHAN
--- NOTE | 2022-06-04 23:44 | NUR ---
MIRELLA JOYCE at bedside examining patient.
[2022-06-05] MEDS ORDERED: KETOROLAC TROMETHAMINE 30 MG VIAL IVP ONE
[2022-06-05] MEDS ORDERED: PROCHLORPERAZINE EDISYLATE 10 MG/2 ML VIAL IVP ONE
[2022-06-05] MEDS ORDERED: DIPHENHYDRAMINE INJ 50 MG/ML VIAL IVP ONE
[2022-06-05] MEDS ORDERED: ACETAMINOPHEN 500 MG TABLET ONE (00:03)
[2022-06-05 00:12] LABS: BASOPHILS # (AUTO) 0.1 K/uL (0.0-0.2); BASOPHILS % (AUTO) 0.5 % (0.0-2.0); EOSINOPHILS # (AUTO) 0.1 K/uL (0.0-0.4); EOSINOPHILS % (AUTO) 0.6 % (0.0-4.0); HEMATOCRIT 37.6 % (36-48); HEMOGLOBIN 12.9 g/dL (12.0-16.0); LYMPHOCYTES # (AUTO) 1.6 K/uL (1.0-5.5); LYMPHOCYTES % (AUTO) 15.6 % (20.5-51.5); MEAN CORPUSCULAR HEMOGLOBIN 29 pg (27-31); MEAN CORPUSCULAR HGB CONC 34 % (32-36); MEAN CORPUSCULAR VOLUME 84 fL (79.0-98.0); MONOCYTES # (AUTO) 0.5 K/uL (0.0-1.0); MONOCYTES % (AUTO) 4.9 % (1.7-9.3); NEUTROPHILS # (AUTO) 7.9 K/uL (1.8-7.7); NEUTROPHILS % (AUTO) 78.4 % (40.0-70.0); PLATELET COUNT (AUTO) 230 K/uL (130-430); RED CELL DISTRIBUTION WIDTH 14.2 % (9.0-15.0); WHITE BLOOD COUNT (AUTO) 10.1 K/uL (4.8-10.8)
[2022-06-05] MEDS: MAG HYDROX/AL HYDROX/SIMETH 30 ML, LIDOCAINE VISCOUS 2% 15ML (PO) 15 ML, DICYCLOMINE HC... PO ONE ×6 (00:31→00:33)
[2022-06-05 00:37] LABS: BILIRUBIN,URINE NEGATIVE (NEGATIVE); CLARITY/URINE CLEAR (CLEAR); COLOR,URINE YELLOW (YELLOW); GLUCOSE,URINE NEGATIVE (NEGATIVE); KETONES,URINE NEGATIVE (NEGATIVE); LEUKOCYTE ESTERASE ,URINE NEGATIVE (NEGATIVE); NITRITE, URINE NEGATIVE (NEGATIVE); PH,URINE 7.5 (5.0-8.0); PROTEIN URINE NEGATIVE (NEGATIVE); UROBILINOGEN,URINE 0.2 (0.2-1.0)
[2022-06-05 00:40] LABS: CALCIUM 8.7 mg/dL (8.4-11.0); CREATININE 0.76 mg/dL (0.55-1.30); POTASSIUM 3.4 mmol/L (3.5-5.1)
[2022-06-05 00:42] LABS: BLOOD, URINE TRACE (NEGATIVE)
[2022-06-05 00:46] LABS: BACTERIA,URINE RARE /HPF (None Seen); RBC,URINE 0-3 /HPF (0-3); WBC,URINE NONE SEEN /HPF (0-3)
[2022-06-05 00:47] LABS: MUCUS,URINE None Seen /LPF (None Seen)
[2022-06-05] MEDS ORDERED: ONDA-8 TL (01:25)
[2022-06-05] MEDS ORDERED: TRAM50TA2 PO (01:25)
[2022-06-05 01:42] VITALS: BP_SYST 140
--- NOTE | 2022-06-05 01:42 | NUR ---
Patient given written and verbal discharge instructions and verbalizes understanding. ER MD discussed with patient the results and treatment provided. Patient in stable condition. ID arm band removed. IV catheter removed intact and dressing applied, no active bleeding. Rx of ZOFRAN AND TRAMADOL given. Patient educated on pain management and to follow up with PMD. Pain Scale 0/10 Opportunity for questions provided and answered. Medication side effect fact sheet provided.
== END 2022-06-05 01:42 | disposition home or self-care (01) ==
LOC: SED 22:23
DX: R20.2 Paresthesia of skin (principal); R51.9 Headache, unspecified; M54.2 Cervicalgia; I10 Essential (primary) hypertension; K21.9 Gastro-esophageal reflux disease without esophagitis; Z79.899 Other long term (current) drug therapy
CPT/HCPCS: 99284; 80048; 81000; 85025; 85651; 36415; 96374; 96375; 96361; J7030 ×2; J2001; J1200; J1885; J0780

== ENCOUNTER 2022-10-09 16:48 | Emergency (ER) | payer MEDICAID ==
[~2022-10-09] VITALS: Ht 154.9 cm; Wt 106.6 kg
[~2022-10-09 16:48] MED LIST changes: -ACETAMINOPHEN 500 MG TABLET PO ONE; -METOCLOPRAMIDE HCL 10 MG/2 ML VIAL IVP ONE; -NACL 0.9% 1,000 ML IV ONE; +ONDA-8 TL; +TRAM50TA2 PO
[2022-10-09 16:50] VITALS: BP_SYST 187
--- NOTE | 2022-10-09 16:50 | NUR ---
Patient triaged and placed in waiting room. VSS and patient appears in no acute distress at this time. Accompanied by SELF, awaiting available bed, and MD notified of need for MSE.
--- NOTE | 2022-10-09 16:59 | NUR ---
PT STATES SHE IS HAVING A FLARE UP OF HER GASTRITIS WHICH IS CAUSING HER A HEADACHE. STATES HEADACHE IS A 9/10. AWAITING ER BED AVAILABILITY
--- NOTE | 2022-10-09 17:52 | NUR ---
DR LUTHER OUT TO TRIAGE ROOM TO EVIRINA PT.
[2022-10-09] MEDS ORDERED: MAG-AL HYDROX/SIMETH 30 ML UDC PO ONE (18:00)
[2022-10-09] MEDS ORDERED: LIDOCAINE VISCOUS 2%, 15 ML UDC MM ONE (18:00)
[2022-10-09] MEDS ORDERED: DICYCLOMINE HCL 10 MG/5 ML SOLUTION PO ONE (18:00)
[2022-10-09] MEDS ORDERED: KETOROLAC TROMETHAMINE 30 MG VIAL IM ONE (18:00)
[2022-10-09] MEDS ORDERED: BELLADONNA ALKALOIDS/PHENOBARB 5 ML UDC PO ONE (18:00)
[2022-10-09 18:38] LABS: THYROID STIMULATING HORMONE 6.76 uIu/mL (0.36-3.74)
[2022-10-09] MEDS ORDERED: OMEP40CA20 PO (20:48)
[2022-10-09 21:18] VITALS: BP_SYST 138
--- NOTE | 2022-10-09 21:19 | NUR ---
Patient given written and verbal discharge instructions and verbalizes understanding. ER MD discussed with patient the results and treatment provided. Patient in stable condition. ID arm band removed. IV catheter removed intact and dressing applied, no active bleeding. Rx PROTONIX given. Patient educated on pain management and to follow up with PMD. Pain Scale . Opportunity for questions provided and answered. Medication side effect fact sheet provided.
== END 2022-10-09 21:18 | disposition home or self-care (01) ==
LOC: SED 16:48
DX: K29.70 Gastritis, unspecified, without bleeding (principal); G44.209 Tension-type headache, unspecified, not intractable; E03.9 Hypothyroidism, unspecified; R53.1 Weakness; K21.9 Gastro-esophageal reflux disease without esophagitis; I10 Essential (primary) hypertension; Z79.899 Other long term (current) drug therapy
CPT/HCPCS: 99284; 84443; 84484; 36415; 93005; 96372; J2001; J1885

== ENCOUNTER 2022-11-03 15:23 | Emergency (ER) | payer MEDICAID ==
[~2022-11-03] VITALS: Ht 154.9 cm; Wt 104.3 kg
[2022-11-03 15:50] VITALS: BP_SYST 164
[2022-11-03 16:56] LABS: BILIRUBIN,URINE NEGATIVE (NEGATIVE); CLARITY/URINE CLEAR (CLEAR); COLOR,URINE YELLOW (YELLOW); GLUCOSE,URINE NEGATIVE (NEGATIVE); KETONES,URINE NEGATIVE (NEGATIVE); LEUKOCYTE ESTERASE ,URINE TRACE (NEGATIVE); NITRITE, URINE NEGATIVE (NEGATIVE); PH,URINE 6.5 (5.0-8.0); PROTEIN URINE NEGATIVE (NEGATIVE)
[2022-11-03 17:02] LABS: BLOOD, URINE TRACE (NEGATIVE)
[2022-11-03 17:03] LABS: BACTERIA,URINE FEW /HPF (None Seen); MUCUS,URINE None Seen /LPF (None Seen); RBC,URINE 0-3 /HPF (0-3)
[2022-11-03 17:37] LABS: BASOPHILS % (AUTO) 0.4 % (0.0-2.0); EOSINOPHILS # (AUTO) 0.1 K/uL (0.0-0.4); EOSINOPHILS % (AUTO) 1.8 % (0.0-4.0); HEMATOCRIT 39.4 % (36-48); HEMOGLOBIN 13.2 g/dL (12.0-16.0); LYMPHOCYTES # (AUTO) 2.2 K/uL (1.0-5.5); LYMPHOCYTES % (AUTO) 27.3 % (20.5-51.5); MEAN CORPUSCULAR HEMOGLOBIN 29 pg (27-31); MEAN CORPUSCULAR HGB CONC 34 % (32-36); MEAN CORPUSCULAR VOLUME 85 fL (79.0-98.0); MONOCYTES # (AUTO) 0.6 K/uL (0.0-1.0); NEUTROPHILS # (AUTO) 5.1 K/uL (1.8-7.7); NEUTROPHILS % (AUTO) 63.5 % (40.0-70.0); PLATELET COUNT (AUTO) 224 K/uL (130-430); RED BLOOD CELL COUNT(AUTO) 4.63 MIL/uL (4.2-6.2); RED CELL DISTRIBUTION WIDTH 14.3 % (9.0-15.0)
[2022-11-03 17:54] LABS: CALCIUM 8.8 mg/dL (8.4-11.0); CREATININE 0.72 mg/dL (0.55-1.30)
[2022-11-03 18:06] LABS: ALBUMIN 3.8 g/dL (3.4-4.8); PHOSPHORUS 3.2 mg/dL (2.7-4.5); THYROID STIMULATING HORMONE 3.26 uIu/mL (0.34-4.82); TOTAL BILIRUBIN 0.3 mg/dL (0.0-1.0)
[2022-11-03] MEDS ORDERED: cephALEXin 500 MG CAPSULE PO ONE (19:00)
[2022-11-03] MEDS ORDERED: KETOROLAC TROMETHAMINE 30 MG VIAL IM ONE (19:00)
[2022-11-03] MEDS ORDERED: ACETAMINOPHEN 500 MG TABLET PO ONE (19:00)
[2022-11-03] MEDS ORDERED: LIDOINT TP (19:11)
[2022-11-03] MEDS ORDERED: PHEN-890 PO (19:11)
[2022-11-03] MEDS ORDERED: ACET-2634 PO (19:11)
[2022-11-03] MEDS ORDERED: CEPH-548 PO (19:11)
[2022-11-03 19:37] VITALS: BP_SYST 148
== END 2022-11-03 19:37 | disposition home or self-care (01) ==
LOC: SED 15:23
DX: M62.831 Muscle spasm of calf (principal); M79.661 Pain in right lower leg; M79.662 Pain in left lower leg; Z79.899 Other long term (current) drug therapy
CPT/HCPCS: 99283; 80053; 81000; 82550; 84439; 83735; 84100; 84443; 85025; 36415; 81025; 96372; J1885

== ENCOUNTER 2023-03-07 19:49 | Emergency (ER) | payer BC, MEDICAID ==
[~2023-03-07] VITALS: Ht 154.9 cm; Wt 108.9 kg
[~2023-03-07 19:49] MED LIST changes: +ACET-2634 PO; +CEPH-548 PO; +LIDOINT TP; +PHEN-890 PO
[2023-03-07 19:50] VITALS: BP_SYST 160; PULSE 83; RESP 18; TEMP 98.2; O2SAT 96
[2023-03-07] MEDS ORDERED: MAG HYDROX/AL HYDROX/SIMETH 30 ML, DICYCLOMINE HCL 20 MG, LIDOCAINE VISCOUS 2% 15ML (PO... PO ONE ×3 (20:15)
[2023-03-07] MEDS ORDERED: METOCLOPRAMIDE HCL 10 MG TABLET PO ONE (20:15)
[2023-03-07] MEDS ORDERED: MAG-AL HYDROX/SIMETH 30 ML UDC ONE (20:21)
[2023-03-07] MEDS ORDERED: DICYCLOMINE HCL 10 MG/5 ML SOLUTION ONE (20:21)
[2023-03-07] MEDS ORDERED: ONDA-8 TL (20:51)
[2023-03-07] MEDS ORDERED: SUCR1TAB2 PO (20:51)
[2023-03-07] MEDS ORDERED: OMEP20TA20 PO (20:51)
[2023-03-07] MEDS ORDERED: KETOROLAC TROMETHAMINE 15 MG VIAL IM ONE (21:00)
[2023-03-07] MEDS ORDERED: ACETAMINOPHEN 500 MG TABLET PO ONE (21:00)
[2023-03-07 21:11] VITALS: BP_SYST 160; PULSE 83; RESP 18; TEMP 98.2; O2SAT 96
== END 2023-03-07 21:09 | disposition home or self-care (01) ==
LOC: SED 19:49
DX: K29.70 Gastritis, unspecified, without bleeding (principal); R51.9 Headache, unspecified; R11.2 Nausea with vomiting, unspecified; Z79.899 Other long term (current) drug therapy
CPT/HCPCS: 99284; 96372; J8597; J1885

== ENCOUNTER 2023-03-24 14:54 | Emergency (ER) | payer BC, MEDICAID ==
[~2023-03-24] VITALS: Ht 157.5 cm; Wt 99.8 kg
[~2023-03-24 14:54] MED LIST changes: +OMEP20TA20 PO
[2023-03-24 15:10] VITALS: BP_SYST 174; PULSE 88; RESP 18; TEMP 98.2; O2SAT 99
[2023-03-24] MEDS ORDERED: KETOROLAC TROMETHAMINE 60 MG/2 ML VIAL IM ONE (15:15)
[2023-03-24 15:27] LABS: BASOPHILS # (AUTO) 0.1 K/uL (0.0-0.2); BASOPHILS % (AUTO) 0.7 % (0.0-2.0); EOSINOPHILS # (AUTO) 0.2 K/uL (0.0-0.4); EOSINOPHILS % (AUTO) 1.8 % (0.0-4.0); HEMOGLOBIN 13.1 g/dL (12.0-16.0); LYMPHOCYTES # (AUTO) 2.1 K/uL (1.0-5.5); LYMPHOCYTES % (AUTO) 25.1 % (20.5-51.5); MEAN CORPUSCULAR HEMOGLOBIN 28 pg (27-31); MEAN CORPUSCULAR HGB CONC 33 % (32-36); MEAN CORPUSCULAR VOLUME 85 fL (79.0-98.0); MONOCYTES # (AUTO) 0.5 K/uL (0.0-1.0); MONOCYTES % (AUTO) 6.3 % (1.7-9.3); NEUTROPHILS # (AUTO) 5.5 K/uL (1.8-7.7); NEUTROPHILS % (AUTO) 66.1 % (40.0-70.0); PLATELET COUNT (AUTO) 238 K/uL (130-430); RED BLOOD CELL COUNT(AUTO) 4.71 MIL/uL (4.2-6.2); RED CELL DISTRIBUTION WIDTH 14.8 % (9.0-15.0); WHITE BLOOD COUNT (AUTO) 8.3 K/uL (4.8-10.8)
[2023-03-24 15:42] LABS: CALCIUM 8.7 mg/dL (8.4-11.0); CREATININE 0.81 mg/dL (0.55-1.30); POTASSIUM 3.5 mmol/L (3.5-5.1)
[2023-03-24 15:47] LABS: ALBUMIN 3.5 g/dL (3.4-4.8); TOTAL BILIRUBIN 0.3 mg/dL (0.0-1.0); TOTAL PROTEIN, SERUM 7.6 g/dL (6.4-8.3)
[2023-03-24 15:50] LABS: BILIRUBIN,URINE NEGATIVE (NEGATIVE); CLARITY/URINE CLEAR (CLEAR); COLOR,URINE YELLOW (YELLOW); GLUCOSE,URINE NEGATIVE (NEGATIVE); KETONES,URINE NEGATIVE (NEGATIVE); LEUKOCYTE ESTERASE ,URINE TRACE (NEGATIVE); NITRITE, URINE NEGATIVE (NEGATIVE); PH,URINE 6.5 (5.0-8.0); PROTEIN URINE NEGATIVE (NEGATIVE); UROBILINOGEN,URINE 0.2 (0.2-1.0)
[2023-03-24 15:57] LABS: SERUM HCG (QUALITATIVE) NEGATIVE (NEGATIVE)
[2023-03-24 15:58] LABS: BLOOD, URINE TRACE (NEGATIVE)
[2023-03-24 16:09] LABS: BACTERIA,URINE RARE /HPF (None Seen)
[2023-03-24] MEDS ORDERED: HYDROcodone/ACETAMIN 10-325 MG TAB PO ONE (16:45)
[2023-03-24] MEDS ORDERED: SULF1TAB48 PO (20:20)
[2023-03-24] MEDS ORDERED: DICL75TA5 PO (20:20)
[2023-03-24] MEDS ORDERED: SULFAMETHOXAZOLE/TRIMETHOPR DS 1 TABLET PO ONE (20:30)
[2023-03-24 20:37] VITALS: BP_SYST 173; PULSE 83; RESP 16; TEMP 98.5; O2SAT 97
== END 2023-03-24 20:37 | disposition home or self-care (01) ==
LOC: SED 14:54
DX: N39.0 Urinary tract infection, site not specified (principal); R10.2 Pelvic and perineal pain; R10.32 Left lower quadrant pain; Z79.899 Other long term (current) drug therapy
CPT/HCPCS: 99285; 74176; 76830; 76857; 80053; 81000; 84703; 83690; 85025; 36415; 73502; 76376; 96372; 72170; J1885

== ENCOUNTER 2023-06-11 16:57 | Emergency (ER) | payer BC, MEDICAID ==
[~2023-06-11] VITALS: Ht 154.9 cm; Wt 104.3 kg
[~2023-06-11 16:57] MED LIST changes: +DICL75TA5 PO; +SULF1TAB48 PO
[2023-06-11 17:40] VITALS: BP_SYST 155; PULSE 88; RESP 20; TEMP 98.3; O2SAT 100
[2023-06-11] MEDS ORDERED: OMEP20CA15 PO (17:58)
[2023-06-11] MEDS ORDERED: TRAM50TA2 PO (17:58)
[2023-06-11] MEDS ORDERED: MAG-AL HYDROX/SIMETH 30 ML UDC PO ONE (18:00)
[2023-06-11] MEDS ORDERED: LIDOCAINE VISCOUS 2%, 15 ML UDC PO ONE (18:00)
[2023-06-11] MEDS ORDERED: BELLADONNA ALKALOIDS/PHENOBARB 5 ML UDC PO ONE (18:00)
[2023-06-11 18:18] VITALS: BP_SYST 120; PULSE 88; RESP 20; TEMP 98.3; O2SAT 100
[2023-06-12] MEDS ORDERED: SUCR1TAB2 PO (12:50)
== END 2023-06-11 18:17 | disposition home or self-care (01) ==
LOC: SED 16:57
DX: K29.70 Gastritis, unspecified, without bleeding (principal); R10.13 Epigastric pain; R11.10 Vomiting, unspecified; Z79.899 Other long term (current) drug therapy
CPT/HCPCS: 99283; J2001

== ENCOUNTER 2023-06-12 10:23 | Emergency (ER) | payer BC, MEDICAID ==
[~2023-06-12] VITALS: Ht 160 cm; Wt 99.8 kg
[~2023-06-12 10:23] MED LIST changes: +OMEP20CA15 PO
[2023-06-12 10:39] VITALS: BP_SYST 148; PULSE 99; RESP 18; TEMP 98.3; O2SAT 98
[2023-06-12] MEDS ORDERED: PANTOPRAZOLE SODIUM 40 MG/VIAL (PROTONIX) IVP ONE (10:45)
[2023-06-12] MEDS ORDERED: NACL 0.9% 1,000 ML IV ONE (10:45)
[2023-06-12] MEDS ORDERED: ONDANSETRON HCL 4 MG/2 ML VIAL IVP ONE (10:45)
[2023-06-12 11:16] LABS: BASOPHILS % (AUTO) 0.4 % (0.0-2.0); EOSINOPHILS # (AUTO) 0.1 K/uL (0.0-0.4); EOSINOPHILS % (AUTO) 0.9 % (0.0-4.0); HEMATOCRIT 40.9 % (36-48); HEMOGLOBIN 13.2 g/dL (12.0-16.0); LYMPHOCYTES # (AUTO) 1.7 K/uL (1.0-5.5); LYMPHOCYTES % (AUTO) 23.5 % (20.5-51.5); MEAN CORPUSCULAR HEMOGLOBIN 28 pg (27-31); MEAN CORPUSCULAR HGB CONC 32 % (32-36); MEAN CORPUSCULAR VOLUME 86 fL (79.0-98.0); MONOCYTES # (AUTO) 0.4 K/uL (0.0-1.0); MONOCYTES % (AUTO) 5.1 % (1.7-9.3); NEUTROPHILS % (AUTO) 70.1 % (40.0-70.0); PLATELET COUNT (AUTO) 238 K/uL (130-430); RED BLOOD CELL COUNT(AUTO) 4.78 MIL/uL (4.2-6.2); RED CELL DISTRIBUTION WIDTH 14.7 % (9.0-15.0); WHITE BLOOD COUNT (AUTO) 7.1 K/uL (4.8-10.8)
[2023-06-12 11:29] LABS: CALCIUM 9.1 mg/dL (8.4-11.0); CREATININE 0.82 mg/dL (0.55-1.30); POTASSIUM 3.7 mmol/L (3.5-5.1); TOTAL BILIRUBIN 0.5 mg/dL (0.0-1.0); TOTAL PROTEIN, SERUM 7.8 g/dL (6.4-8.3)
[2023-06-12 11:30] LABS: ALBUMIN 3.7 g/dL (3.4-4.8)
[2023-06-12] MEDS ORDERED: KETOROLAC TROMETHAMINE 30 MG VIAL IVP ONE (12:45)
[2023-06-12] MEDS ORDERED: SUCR1TAB2 PO (12:50)
[2023-06-12 13:29] LABS: BARBITURATE, URINE NEGATIVE (NEG <=200); BENZODIAZEPINE, URINE NEGATIVE (NEG <=150); CANNABINOID, URINE NEGATIVE (NEG <=50); COCAINE, URINE NEGATIVE (NEG <=150); METHAMPHETAMINES SCREEN,URINE NEGATIVE (NEG <=500); OPIATE, URINE NEGATIVE (NEG <=100); PHENCYCLIDINE SCREEN,URINE NEGATIVE (NEG <=25); URINE AMPHETAMINE NEGATIVE (NEG <=500); URINE METHADONE NEGATIVE (NEG <=200); URINE OXYCODONE SCREEN NEGATIVE (NEG <=100); URINE PROPOXYPHENE SCREEN NEGATIVE (NEG <=300)
[2023-06-12 13:30] LABS: UR TRICYCLIC ANTIDEPRESSANTS NEGATIVE (NEG <=300)
[2023-06-12 13:39] VITALS: BP_SYST 146; PULSE 64; RESP 16; TEMP 98.3; O2SAT 96
== END 2023-06-12 13:37 | disposition home or self-care (01) ==
LOC: SED 10:23
DX: K29.00 Acute gastritis without bleeding (principal); R11.2 Nausea with vomiting, unspecified; R10.13 Epigastric pain; Z79.899 Other long term (current) drug therapy
CPT/HCPCS: 99284; 96374; 96375; 96361; 80307; 80053; 83690; 85025; 36415; J1885; J2405; C9113; J7030

== ENCOUNTER → 2023-07-09 | Emergency (ER) | payer BC, MEDICAID ==
[~2023-07-09] VITALS: Ht 154.9 cm; Wt 104.3 kg
[~2023-07-09] MED LIST changes: +CEPH250C PO; +MAG HYDROX/AL HYDROX/SIMETH 30 ML, DICYCLOMINE HCL 20 MG, LIDOCAINE VISCOUS 2% 15ML (PO... PO ONE; +MORPHINE 4 MG INJ. 4 MG/ML VIAL IVP ONE; +ONDANSETRON HCL 4 MG/2 ML VIAL IVP ONE; +POTASSIUM CHLORIDE 20 MEQ/PKT PACKET PO ONE
[2023-07-09 13:02] VITALS: BP_SYST 138; PULSE 88; RESP 18; TEMP 98.3; O2SAT 98
[2023-07-09 14:34] LABS: BILIRUBIN,URINE NEGATIVE (NEGATIVE); BLOOD, URINE NEGATIVE (NEGATIVE); CLARITY/URINE SL CLOUDY (CLEAR); COLOR,URINE YELLOW (YELLOW); GLUCOSE,URINE NEGATIVE (NEGATIVE); KETONES,URINE NEGATIVE (NEGATIVE); LEUKOCYTE ESTERASE ,URINE TRACE (NEGATIVE); NITRITE, URINE NEGATIVE (NEGATIVE); PH,URINE 7.5 (5.0-8.0); PROTEIN URINE NEGATIVE (NEGATIVE)
[2023-07-09 15:00] LABS: BACTERIA,URINE RARE /HPF (None Seen); RBC,URINE 0-3 /HPF (0-3); URINE AMORPHOUS PHOSPHATES 2+ /HPF (None Seen)
[2023-07-09 15:34] LABS: BASOPHILS % (AUTO) 0.3 % (0.0-2.0); EOSINOPHILS # (AUTO) 0.1 K/uL (0.0-0.4); EOSINOPHILS % (AUTO) 1.2 % (0.0-4.0); LYMPHOCYTES % (AUTO) 25.1 % (20.5-51.5); MEAN CORPUSCULAR HEMOGLOBIN 28 pg (27-31); MEAN CORPUSCULAR HGB CONC 32 % (32-36); MEAN CORPUSCULAR VOLUME 85 fL (79.0-98.0); MONOCYTES # (AUTO) 0.5 K/uL (0.0-1.0); MONOCYTES % (AUTO) 5.8 % (1.7-9.3); NEUTROPHILS # (AUTO) 5.3 K/uL (1.8-7.7); NEUTROPHILS % (AUTO) 67.6 % (40.0-70.0); PLATELET COUNT (AUTO) 251 K/uL (130-430); RED BLOOD CELL COUNT(AUTO) 4.71 MIL/uL (4.2-6.2); WHITE BLOOD COUNT (AUTO) 7.9 K/uL (4.8-10.8)
[2023-07-09 16:07] LABS: CALCIUM 9.1 mg/dL (8.4-11.0); CREATININE 0.81 mg/dL (0.55-1.30); POTASSIUM 3.4 mmol/L (3.5-5.1)
[2023-07-09 16:18] LABS: ALBUMIN 3.4 g/dL (3.4-4.8); BILIRUBIN,DIRECT 0.1 mg/dL (0.0-0.3); TOTAL BILIRUBIN 0.4 mg/dL (0.0-1.0); TOTAL PROTEIN, SERUM 7.6 g/dL (6.4-8.3)
[2023-07-09 19:22] VITALS: BP_SYST 138; PULSE 88; RESP 18; TEMP 98.3; O2SAT 98
== END | disposition home or self-care (01) ==
LOC: SED 12:50
DX: R51.9 Headache, unspecified (principal); R11.10 Vomiting, unspecified; E78.6 Lipoprotein deficiency; Z79.899 Other long term (current) drug therapy
CPT/HCPCS: 99285; 96374; 70450; 96375; 80076; 80048; 81001; 83690; 85025; 36415; 76376; 81025; 81000; 81015; J2405; J2270

== ENCOUNTER 2023-10-05 16:50 | Emergency (ER) | payer BC, MEDICAID ==
[~2023-10-05] VITALS: Ht 154.9 cm; Wt 104.3 kg
[~2023-10-05 16:50] MED LIST changes: -MAG HYDROX/AL HYDROX/SIMETH 30 ML, DICYCLOMINE HCL 20 MG, LIDOCAINE VISCOUS 2% 15ML (PO... PO ONE; -MORPHINE 4 MG INJ. 4 MG/ML VIAL IVP ONE; -ONDANSETRON HCL 4 MG/2 ML VIAL IVP ONE; -POTASSIUM CHLORIDE 20 MEQ/PKT PACKET PO ONE
[2023-10-05 17:35] VITALS: BP_SYST 148; PULSE 79; RESP 20; TEMP 98; O2SAT 100
[2023-10-05 18:29] LABS: INFLUENZA TYPE A NEGATIVE (NEGATIVE); INFLUENZA TYPE B NEGATIVE (NEGATIVE)
[2023-10-05] MEDS: guaiFENesin/DEXTROMETHORPHAN 10 ML UDC PO ONE (20:47)
[2023-10-05] MEDS: BENZONATATE 100 MG CAPSULE (TESSALON) PO ONE (20:47)
[2023-10-05 21:01] LABS: BASOPHILS # (AUTO) 0.1 K/uL (0.0-0.2); BASOPHILS % (AUTO) 0.6 % (0.0-2.0); EOSINOPHILS # (AUTO) 0.2 K/uL (0.0-0.4); HEMATOCRIT 39.3 % (36-48); HEMOGLOBIN 13.2 g/dL (12.0-16.0); LYMPHOCYTES # (AUTO) 2.4 K/uL (1.0-5.5); LYMPHOCYTES % (AUTO) 24.7 % (20.5-51.5); MEAN CORPUSCULAR HEMOGLOBIN 29 pg (27-31); MEAN CORPUSCULAR HGB CONC 34 % (32-36); MEAN CORPUSCULAR VOLUME 85 fL (79.0-98.0); MONOCYTES # (AUTO) 0.5 K/uL (0.0-1.0); MONOCYTES % (AUTO) 5.2 % (1.7-9.3); NEUTROPHILS # (AUTO) 6.7 K/uL (1.8-7.7); NEUTROPHILS % (AUTO) 67.5 % (40.0-70.0); PLATELET COUNT (AUTO) 274 K/uL (130-430); RED BLOOD CELL COUNT(AUTO) 4.64 MIL/uL (4.2-6.2); RED CELL DISTRIBUTION WIDTH 15.2 % (9.0-15.0); WHITE BLOOD COUNT (AUTO) 9.9 K/uL (4.8-10.8)
[2023-10-05 21:08] LABS: SERUM HCG (QUALITATIVE) NEGATIVE (NEGATIVE)
[2023-10-05 21:09] LABS: ANION GAP 11 (5-15); CALCIUM 8.7 mg/dL (8.4-11.0); CARBON DIOXIDE 27 mmol/L (23-29); CHLORIDE 103 mmol/L (98-107); CREATININE 0.73 mg/dL (0.55-1.30); GFR AFRICAN AMERICAN 114 mL/min (>90); GLUCOSE 97 mg/dL (74-106); POTASSIUM 3.5 mmol/L (3.5-5.1); SODIUM SERUM 141 mmol/L (136-145); UREA NITROGEN, BLOOD 12 mg/dL (8-21)
[2023-10-05 21:14] LABS: INR 0.9 (0.8-1.2); PROTHROMBIN TIME 9.7 SECS (9.5-12.5)
[2023-10-05 21:20] LABS: GFR NON AFRICAN-AMERICAN 94 mL/min (>90)
[2023-10-05] MEDS: AZITHROMYCIN 250 MG TABLET PO ONE (21:36)
[2023-10-05] MEDS ORDERED: AZITHROMYCIN 250 MG TABLET ONE (21:38)
[2023-10-05] MEDS ORDERED: BENZ100C92 PO (21:39)
[2023-10-05] MEDS ORDERED: IBUP-1969 PO (21:39)
[2023-10-05] MEDS ORDERED: ZIT250 PO (21:39)
[2023-10-05 21:46] VITALS: BP_SYST 134; PULSE 82; RESP 18; TEMP 98.1; O2SAT 98
== END 2023-10-05 21:46 | disposition home or self-care (01) ==
LOC: SED 16:50
DX: J06.9 Acute upper respiratory infection, unspecified (principal); J40 Bronchitis, not specified as acute or chronic; R06.02 Shortness of breath; R05.9 Cough, unspecified; Z79.899 Other long term (current) drug therapy; Z20.822 Contact with and (suspected) exposure to COVID-19
CPT/HCPCS: 99284; 71045; 87426; 80048; 84703; 83880; 85025; 85379; 85610; 84484; 36415; 87804 ×2; Q0144

== ENCOUNTER 2023-10-30 21:49 | Emergency (ER) | payer BC ==
[~2023-10-30] VITALS: Ht 157.5 cm; Wt 104.3 kg
[~2023-10-30 21:49] MED LIST changes: +BENZ100C92 PO; +IBUP-1969 PO; +ZIT250 PO
[2023-10-30 21:53] VITALS: BP_SYST 166; PULSE 70; RESP 18; TEMP 97.3; O2SAT 98
[2023-10-30] MEDS ORDERED: METH-776 PO (22:23)
[2023-10-30] MEDS ORDERED: CEFU250T85 PO (22:23)
[2023-10-30 22:42] VITALS: BP_SYST 166; PULSE 70; RESP 18; TEMP 97.3; O2SAT 98
== END 2023-10-30 22:01 | disposition home or self-care (01) ==
LOC: SED 21:49
DX: J20.9 Acute bronchitis, unspecified (principal)
CPT/HCPCS: 99283

== ENCOUNTER 2023-12-20 03:33 | Emergency (ER) | payer BC ==
[~2023-12-20] VITALS: Ht 154.9 cm; Wt 104.3 kg
[~2023-12-20 03:33] MED LIST changes: +CEFU250T85 PO; +METH-776 PO
[2023-12-20 03:40] VITALS: BP_SYST 163; PULSE 74; RESP 16; TEMP 97.7; O2SAT 100
[2023-12-20] MEDS ORDERED: ANURH RC (04:25)
[2023-12-20] MEDS ORDERED: POLY119P2 PO (04:25)
[2023-12-20] MEDS ORDERED: SENN-302 PO (04:25)
[2023-12-20 04:30] VITALS: BP_SYST 163; PULSE 74; RESP 16; TEMP 97.7; O2SAT 100
== END 2023-12-20 04:31 | disposition home or self-care (01) ==
LOC: SED 03:33
DX: K64.9 Unspecified hemorrhoids (principal); K92.1 Melena; Z79.899 Other long term (current) drug therapy; Z79.2 Long term (current) use of antibiotics
CPT/HCPCS: 99283